=== PATIENT | male | born 1985 | race Caucasian/White ===

== ENCOUNTER 2024-10-11 06:05 | Day surgery (SDC) | payer BC ==
[2024-10-06 11:03] VITALS: BMI 29.7
[2024-10-11] MEDS ORDERED: Ferric Subsulfate 8 ML TOPICAL SOLN ONE (07:56)
[2024-10-11] MEDS ORDERED: PROPOFOL 20 ML ONE (07:58)
[2024-10-11] MEDS ORDERED: Lidocaine 1% PF 5 ML VIAL ONE (07:58)
[2024-10-11] MEDS ORDERED: Rocuronium Bromide 10 MG/ML (10ML VIAL) ONE (07:58)
[2024-10-11] MEDS ORDERED: Ondansetron PF 4 MG/2 ML Vial ONE (08:15)
[2024-10-11] MEDS ORDERED: Lidocaine 1% w/Epinephrine 1:200K 30 ML VIAL ONE (08:17)
[2024-10-11] MEDS ORDERED: SUGAMMADEX SODIUM 200 MG/2 ML VIAL ONE (08:44)
[2024-10-11] MEDS ORDERED: Hydrocodone-Acetamin 15 ML UDCUP ONE (09:31)
== END 2024-10-11 09:55 | disposition home or self-care (01) ==
LOC: CSHSDC 06:05
PROVIDERS: ATTEND Otolaryngology Plastic Surgery within the Head & Neck
PROC: 0CTQXZZ Resection of Adenoids, External Approach (ICD-10-PCS; principal; 2024-10-11)
PROC: 0CTPXZZ Resection of Tonsils, External Approach (ICD-10-PCS; principal; 2024-10-11)
DX: J35.3 Hypertrophy of tonsils with hypertrophy of adenoids (principal); J35.01 Chronic tonsillitis; J34.89 Other specified disorders of nose and nasal sinuses; J34.3 Hypertrophy of nasal turbinates; G47.33 Obstructive sleep apnea (adult) (pediatric); E03.9 Hypothyroidism, unspecified; Z79.890 Hormone replacement therapy
CPT/HCPCS: 88304; J1010; J1100; J2405; J2704; J3010